=== PATIENT | male | born 1990 | race Caucasian/White ===

== ENCOUNTER 2021-12-31 16:20 | Emergency (ER) | payer OTHER ==
[2021-12-31] MEDS: HYDROmorphone 1 MG/ML Syringe IVPUSH ONE (17:47)
[2021-12-31] MEDS: Acetaminophen/Codeine 300-30 MG Tab PO ONE (18:11)
== END 2021-12-31 18:20 | disposition home or self-care (01) ==
LOC: KA.ED 16:20
DX: M54.16 Radiculopathy, lumbar region (principal); M54.50 Low back pain, unspecified; G89.29 Other chronic pain; Z79.899 Other long term (current) drug therapy; Z88.1 Allergy status to other antibiotic agents
CPT/HCPCS: 96374; 99283-25; 99284; A9270-GY; J1170

== ENCOUNTER 2022-11-12 18:34 | Emergency (ER) | payer OTHER ==
[2022-11-12 18:48] VITALS: BP 168/93; PULSE 90
[2022-11-12] MEDS ORDERED: Sodium Chloride 0.9% 10 ML Syringe FLUSH PRN (18:53)
[2022-11-12] MEDS: methylPREDNISolone Sodium Succinate 125 MG/2 ML SDV IVPUSH ONE (19:03)
[2022-11-12] MEDS: Ketorolac 30 MG/ML SDV IVPUSH ONE (19:04)
[2022-11-12] MEDS: Acetaminophen/HYDROcodone 325-10 MG Tab PO ONE (19:50)
== END 2022-11-12 19:50 | disposition home or self-care (01) ==
LOC: KA.ED 18:34
DX: M54.16 Radiculopathy, lumbar region (principal); M54.41 Lumbago with sciatica, right side; Z88.1 Allergy status to other antibiotic agents
CPT/HCPCS: 96365; 96375; 99283-25; J1885; J2930

== ENCOUNTER 2025-07-27 11:06 | Emergency (ER) | payer OTHER ==
[2025-07-27 11:48] VITALS: BP 137/82; PULSE 90
== END 2025-07-27 11:33 | disposition home or self-care (01) ==
LOC: KA.ED 11:06
DX: J02.0 Streptococcal pharyngitis (principal); Z88.1 Allergy status to other antibiotic agents
CPT/HCPCS: 96372; 99282; J0561